=== PATIENT | female | born 1955 | race Caucasian/White ===

== ENCOUNTER 2020-12-29 09:48 | Observation (INO) | payer MEDICARE ==
[2020-12-28 13:50] LABS: BASOPHILS % (AUTO) 2 % (0-1); EOSINOPHILS % (AUTO) 1 % (1-7); LYMPHOCYTES % (AUTO) 26 % (22-44); MEAN CORPUSCULAR HEMOGLOBIN 31.2 pg (27.0-34.8); MEAN CORPUSCULAR HGB CONC 34.6 g/dL (32.4-35.8); MONOCYTES % (AUTO) 6 % (2-9); NEUTROPHILS % (AUTO) 65 % (42-75); PLATELET COUNT 346 x10^3/uL (130-400); RED CELL DISTRIBUTION WIDTH 13.5 % (9.6-15.2)
[2020-12-28 14:02] LABS: ALANINE AMINOTRANSFERASE 24 U/L (12-78); ALBUMIN 3.8 g/dL (3.4-5.0); ANION GAP 5 mmol/L (5-15); CALCIUM 8.3 mg/dL (8.5-10.1); CHLORIDE 109 mmol/L (98-107); CREATININE 0.81 mg/dL (0.55-1.02)
[2020-12-28 14:04] LABS: ALKALINE PHOSPHATASE 35 U/L (45-117); BILIRUBIN,TOTAL 0.5 mg/dL (0.2-1.0)
[2020-12-28 14:05] LABS: MD NO
[2020-12-28 14:07] LABS: INTERNATIONAL NORMALIZED RATIO 0.97 (0.93-1.1); PROTHROMBIN TIME 10.4 Seconds (9.6-11.5)
[~2020-12-29] VITALS: Ht 157.5 cm; Wt 52.6 kg
[~2020-12-29 09:48] MED LIST: BUPIVACAINE/PF 0.25% ONE; EPINEPHRINE 1 MG/ML, 1ML ONE; HEPARIN 1,000 UNITS/ML, 10ML ONE; INDOCYANINE GREEN 25 MG VIAL ONE; LEVO75TA PO; LISI-167 PO; MELA1TAB8 PO; NORE5TAB PO
[2020-12-29] MEDS ORDERED: CEFOTETAN PMX 2GM/50ML 50 ML IVPB ONE (11:00)
[2020-12-29] MEDS ORDERED: LACTATED RINGERS 1,000 ML IV SCH (11:00)
[2020-12-29] MEDS ORDERED: CHLORHEXIDINE 15 ML UDC MM ONE (11:00)
[2020-12-29] MEDS ORDERED: IRON PO (11:03)
[2020-12-29] MEDS ORDERED: ACET325T14 PO (11:03)
[2020-12-29 11:21] VITALS: BP 106/69
[2020-12-29] MEDS ORDERED: MIDAZOLAM 1 MG/ML, 2ML ONE (17:09)
[2020-12-29] MEDS ORDERED: FENTANYL PF 250 MCG/5ML ONE (17:09)
[2020-12-29] MEDS ORDERED: CEFOTETAN 1 GM ONE (18:19)
[2020-12-29] MEDS ORDERED: KETOROLAC 30 MG/1 ML ONE (18:19)
[2020-12-29] MEDS ORDERED: OXYcodone 5 MG/5 ML ORAL.SOL UDC PO PRN (19:00)
[2020-12-29] MEDS ORDERED: ALBUTEROL SULFATE 2.5 MG/3 ML NPPB PRN (19:00)
[2020-12-29] MEDS ORDERED: PROMETHAZINE 25 MG/ML, 1ML IVPush PRN (19:00)
[2020-12-29] MEDS ORDERED: METHOCARBAMOL 1,000 MG in DEXTROSE 5% 100 ML IV PRN (19:00)
[2020-12-29] MEDS ORDERED: MEPERIDINE/PF 25MG/0.5ML IVPush PRN (19:00)
[2020-12-29] MEDS ORDERED: HYDROmorphone 1 MG/ML, 1ML INJ IVPush PRN (19:00)
[2020-12-29] MEDS ORDERED: hydrALAzine 20 MG/ML, 1ML IV PRN (19:00)
[2020-12-29] MEDS ORDERED: LORazepam 2 MG/ML, 1ML IVPush PRN (19:00)
[2020-12-29] MEDS ORDERED: ACETAMINOPHEN 325 MG TABLET PO PRN (19:00)
[2020-12-29] MEDS ORDERED: LABETALOL 5MG/ML, 20ML IV PRN (19:00)
[2020-12-29] MEDS ORDERED: NEOSTIGMINE 1 MG/ML, 10ML ONE (19:49)
[2020-12-29] MEDS ORDERED: ROCURONIUM 10MG/ML,5ML ONE (19:49)
[2020-12-29] MEDS ORDERED: GLYCOPYRROLATE 0.2MG/1ML, 5ML ONE (19:49)
[2020-12-29] MEDS ORDERED: DEXAMETHASONE 4 MG/ML, 1ML ONE (19:49)
[2020-12-29] MEDS ORDERED: ONDANSETRON 2MG/ML, 2ML ONE (19:49)
[2020-12-29] MEDS ORDERED: PROPOFOL 10 MG/ML, 20ML ONE (19:49)
[2020-12-29] MEDS: FENTANYL PF 100 MCG/2ML IV PRN ×2 (20:10→20:25)
[2020-12-29] MEDS ORDERED: OXYcodone 5 MG/5 ML ORAL.SOL UDC ONE (20:12)
[2020-12-29] MEDS ORDERED: FENTANYL PF 100 MCG/2ML ONE ×2 (20:12→20:35)
[2020-12-29] MEDS ORDERED: MEPERIDINE/PF 25MG/ML,1ML ONE (20:35)
[2020-12-29] MEDS ORDERED: OXYcodone/APAP 5/325MG TABLET PO PRN (21:00)
[2020-12-29 21:31] VITALS: BP 110/64
[2020-12-30 01:20] VITALS: BP 109/68
[2020-12-30] MEDS: KETOROLAC 30 MG/1 ML IVPush PRN ×2 (03:46→09:44)
[2020-12-30 04:53] VITALS: BP 94/54
[2020-12-30 07:10] VITALS: BP 107/65
[2020-12-30] MEDS ORDERED: ESTR1TAB15 PO (13:19)
[2020-12-30 13:25] VITALS: BP 84/50
== END 2020-12-30 14:05 | disposition home or self-care (01) ==
LOC: OUT 09:48 → ORIP 21:08 → 4NE 21:21
PROVIDERS: ADMIT Specialist; ATTEND Specialist
DX: N95.0 Postmenopausal bleeding (principal); Z20.822 Contact with and (suspected) exposure to COVID-19; D25.9 Leiomyoma of uterus, unspecified; I10 Essential (primary) hypertension; E78.5 Hyperlipidemia, unspecified; Z79.899 Other long term (current) drug therapy
CPT/HCPCS: 36415; 38500; 38900; 58552; 71046; 74018; 80053; 85025; 85610; 85730; 86304; 86850; 86900; 86923; 88112; 88305; 88307; 88331; 88333; 93005; 96374; 96376; G0378; J0171; J1100; J1644; J1885; J2175; J2250; J2405; J2704; J2710; J3010; J7120; U0003